=== PATIENT | female | born 1945 | race Hispanic/Latino ===

== ENCOUNTER 2016-06-24 10:10 | Day surgery (SDC) | payer MEDICARE ==
[~2016-06-24 10:10] MED LIST: ASPIRIN LOW DOS81 M1 PO; BENAZEPRIL HCL40 MG PO; CLARITIN10 M1 PO; COQ10100 MG PO; CYCLOBENZAPR10 MG PO; ENALAPRIL10 MG PO; GABAPENTIN100 MG PO; GLIPIZIDE5 MG PO; LIPITOR20 M1 PO; LOVASTATIN20 MG PO; METFORMIN HCL1000 MG PO; NAPROXEN500 MG PO
[2016-06-24 12:55] VITALS: BP 135/64
== END 2016-06-24 12:27 | disposition home or self-care (01) ==
LOC: ENDO 10:10 → ORM 16:45 → ENDO 16:45
PROVIDERS: ATTEND Internal Medicine Gastroenterology
PROC: 0DBN8ZX Excision of Sigmoid Colon, Via Natural or Artificial Opening Endoscopic, Diagnostic (ICD-10-PCS; principal; 2016-06-24)
DX: R19.5 Other fecal abnormalities (principal); K21.9 Gastro-esophageal reflux disease without esophagitis; D12.5 Benign neoplasm of sigmoid colon; K64.4 Residual hemorrhoidal skin tags; K57.30 Diverticulosis of large intestine without perforation or abscess without bleeding; K64.8 Other hemorrhoids; E11.9 Type 2 diabetes mellitus without complications; I10 Essential (primary) hypertension; E78.00 Pure hypercholesterolemia, unspecified

== ENCOUNTER 2017-08-24 09:02 | Emergency (ER) | payer MEDICARE ==
[~2017-08-24] VITALS: Ht 157.5 cm; Wt 90.0 kg
[2017-08-24] MEDS ORDERED: LEVOTHYROXIN50 MCG PO (09:26)
[2017-08-24] MEDS ORDERED: VOLTAREN1%GEL TOP (10:03)
[2017-08-24] MEDS ORDERED: MOTRIN400 MG PO (10:03)
[2017-08-24 10:04] VITALS: BP 166/86
== END 2017-08-24 10:14 | disposition home or self-care (01) ==
LOC: ED 09:02
DX: S76.912A Strain of unspecified muscles, fascia and tendons at thigh level, left thigh, initial encounter (principal); E11.9 Type 2 diabetes mellitus without complications; I10 Essential (primary) hypertension; E78.5 Hyperlipidemia, unspecified; E07.9 Disorder of thyroid, unspecified; X58.XXXA Exposure to other specified factors, initial encounter

== ENCOUNTER 2019-04-12 | Emergency (ER) | payer MEDICARE ==
[~2019-04-12] MED LIST changes: -BENAZEPRIL HCL40 MG PO; +BENAZEPRIL10 M1 PO; +LEVOTHYROXIN50 MCG PO; +LIPITOR10 M1 PO; -LIPITOR20 M1 PO; +MOTRIN400 MG PO; +VOLTAREN1%GEL TOP
[2019-04-12] MEDS ORDERED: EC-NAPROXEN500 MG PO (16:19)
[2019-04-12] MEDS ORDERED: ASPIRIN ADULT L81 M2 PO (16:19)
== END 2019-04-12 18:57 | disposition home or self-care (01) ==
DX: M25.511 Pain in right shoulder (principal); E11.9 Type 2 diabetes mellitus without complications; I10 Essential (primary) hypertension; W01.0XXA Fall on same level from slipping, tripping and stumbling without subsequent striking against object, initial encounter; Y92.240 Courthouse as the place of occurrence of the external cause; Z79.84 Long term (current) use of oral hypoglycemic drugs

== ENCOUNTER 2020-11-07 21:45 | Emergency (ER) | payer MEDICARE ==
[~2020-11-07] VITALS: Ht 154.9 cm; Wt 74.0 kg
[~2020-11-07 21:45] MED LIST changes: +ASPIRIN ADULT L81 M2 PO; +EC-NAPROXEN500 MG PO
[2020-11-07] MEDS ORDERED: PRAVASTATIN10 MG PO (22:54)
[2020-11-07] MEDS ORDERED: VALSARTAN40 MG PO (22:54)
[2020-11-07] MEDS ORDERED: ULTRAM50 M1 PO (23:58)
[2020-11-07] MEDS ORDERED: CYCLOBENZAPRINE10 MG PO (23:58)
[2020-11-08 00:13] VITALS: BP 150/74
== END 2020-11-08 00:25 | disposition home or self-care (01) ==
LOC: ED 21:45
DX: S23.3XXA Sprain of ligaments of thoracic spine, initial encounter (principal); S20.221A Contusion of right back wall of thorax, initial encounter; E11.9 Type 2 diabetes mellitus without complications; I10 Essential (primary) hypertension; E78.5 Hyperlipidemia, unspecified; W01.198A Fall on same level from slipping, tripping and stumbling with subsequent striking against other object, initial encounter; Y93.E9 Activity, other interior property and clothing maintenance; Y92.009 Unspecified place in unspecified non-institutional (private) residence as the place of occurrence of the external cause; Z79.84 Long term (current) use of oral hypoglycemic drugs

== ENCOUNTER 2022-01-08 10:35 | Emergency (ER) | payer MEDICARE ==
[~2022-01-08] VITALS: Ht 154.9 cm; Wt 72.7 kg
[~2022-01-08 10:35] MED LIST changes: +CYCLOBENZAPRINE10 MG PO; +PRAVASTATIN10 MG PO; +ULTRAM50 M1 PO; +VALSARTAN40 MG PO
[2022-01-08 10:44] VITALS: BP 163/80
[2022-01-08] MEDS ORDERED: JANUVIA100 MG PO (10:47)
[2022-01-08] MEDS ORDERED: GABAPENTIN100 MG PO (10:47)
[2022-01-08 11:01] VITALS: BP 139/63
[2022-01-08 11:30] VITALS: BP 152/70
[2022-01-08] MEDS ORDERED: IBUPROFEN600 MG PO (11:58)
[2022-01-08] MEDS ORDERED: FLEXERIL5 M1 PO (11:58)
[2022-01-08] MEDS ORDERED: TRAMADOL HYDROC50 M1 PO (12:05)
[2022-01-08 12:09] VITALS: BP 152/70
== END 2022-01-08 12:23 | disposition home or self-care (01) ==
LOC: ED 10:35
DX: S46.912A Strain of unspecified muscle, fascia and tendon at shoulder and upper arm level, left arm, initial encounter (principal); I10 Essential (primary) hypertension; E11.9 Type 2 diabetes mellitus without complications; E78.5 Hyperlipidemia, unspecified; Z79.84 Long term (current) use of oral hypoglycemic drugs; X50.0XXA Overexertion from strenuous movement or load, initial encounter; Y92.009 Unspecified place in unspecified non-institutional (private) residence as the place of occurrence of the external cause